=== PATIENT | female | born 1970 | race Caucasian/White ===

== ENCOUNTER → 2017-04-03 | Outpatient (CLI) | payer MEDICARE, OTHER ==
[~2017-04-03] MED LIST: ANEXSIA 7.5/3251 TA1 PO; BACLOFEN10 MG PO; BISACODYL10 MG/SUPP PR; BISACODYL5 M1 PO; CALCIUM CITRATE +D PO; CELONTIN300 MG PO; CENTRUM240 ML PO; CERTA VITE9 MG/15 ML PO; CERTAGEN PO; CLARITIN10 MG PO; COLACE PO; DANTROLENE SODI50 MG PO; DIAZEPAM PR; DIFLUCAN PO; DULOXETINE HCL30 MG PO; EPIPEN0.3 MG/0.1 IM; FIBERSTAT PO; FOLIC ACID PO; HYDROCODONE-APA1 T30 PO; LORTAB 7.5-5001 TAB PO; LOVENOX SUBQ; MACROBID 100 M100 MG PO; MACRODANTIN PO; MIACALCIN4 ML; MIRALAX17 GM PO; MYLANTA PO; NEURONTIN100 MG PO; NEXIUM PO; NITROFURANTOIN100 M3 PO; ORTHO TRI-7 DAYS X PO; OYSTER CALCIUM500 MG PO; PAIN RELIEVER325 M1 PO; PAMPRIN MULTI-S1 TAB PO; PAXIL PO; PRILOSEC PO; PYRIDIUM100 MG PO; SENNA8.6 M1 PO; SKIN TREATMENT225 GM TOP; TRIPLE ANTIBIOT28 GM TOP; VITAMINA TOP; [UNRECOGNIZED DRUG - OTHER] PO; [UNRECOGNIZED DRUG - OTHER] TOP
== END | disposition home or self-care (01) ==
LOC: CSSDAY 09:54
DX: M81.0 Age-related osteoporosis without current pathological fracture (principal)
CPT/HCPCS: 96372; J0897

== ENCOUNTER → 2017-04-20 | Outpatient (CLI) | payer MEDICARE, OTHER ==
--- NOTE | ~2017-04-20 | US17 ---
[facility] A Service of [facility] RADIOLOGY TEXT RESULTS PATIENT: MAURICE WEST LOCATION: [facility] : 66 UNIT #: [id number] AGE: [address]: Brent Dunn MD SEX: F ORDER DR: [id number] [facility]. [place], [place] [address] [id number] O MR#: [id number] Acc #: [id number] NAME: MAURICE WEST : 1970 SEX: F STUDY DATE/TIME: 04/20/2017 13:43 UNIT: [facility] ROOM: STUDY DESCRIPTION: US Breast Bilateral Attending Physician: Brent Dunn M.D. Referring Physician: Brent Dunn M.D. Ordering Physician: Brent Dunn M.D. Primary Care Physician: Jim Bar Sr., M.D. MEDICAL IMAGING REPORT This report is preliminary unless electronic signature is present EXAM Bilateral breast ultrasound. INDICATIONS Previous abnormal breast ultrasound. Breast screening. FINDINGS Ultrasound screening evaluation of both breasts was performed. The patient previously had an abnormal ultrasound on 09/15/2016. No suspicious ultrasound findings are identified on today's exam. No evidence of mass or malignancy. IMPRESSION Negative breast screening ultrasound. Patients over the age of 40 are entered into a reminder system with target due date for the next mammogram. A result letter will also be sent to the patient. BIRADS: 1 Negative. Dictated by... Hola Cummings M.D. THIS IS AN ELECTRONICALLY VERIFIED REPORT Hola Cummings M.D. at 04/21/2017 2:50 PM DANILO/mynor TD: 04/20/2017 19:36 JOB #: [id number] MEDICAL IMAGING REPORT [facility] A Service of [facility] RADIOLOGY TEXT RESULTS PATIENT: MAURICE WEST LOCATION: [facility] : 66 UNIT #: [id number] AGE: [address]: Brent Dunn MD SEX: F ORDER DR: Page 1 of 1 COPY
== END | disposition home or self-care (01) ==
LOC: CGUS 04-12 13:30
DX: R92.8 Other abnormal and inconclusive findings on diagnostic imaging of breast (principal)
CPT/HCPCS: 76641